=== PATIENT | female | born 1985 | race Caucasian/White ===

== ENCOUNTER → 2019-09-06 10:31 | Outpatient (BNVA) | payer BC, SELFPAY | PROVIDERS: Visit Provider Nurse Practitioner | DX: E10.9 Type 1 diabetes mellitus without complications (principal); E89.0 Postprocedural hypothyroidism | CPT/HCPCS: 82947; 83036; 84439; 84443 ==

== ENCOUNTER → 2020-10-18 10:28 | Outpatient (BNVA) | payer BC, SELFPAY | PROVIDERS: Visit Provider Registered Nurse | DX: E53.8 Deficiency of other specified B group vitamins (principal) | CPT/HCPCS: 82607 ==